=== PATIENT | male | born 2000 | race Caucasian/White ===

== ENCOUNTER → 2021-06-18 15:37 | Outpatient (REF) | payer OTHER, SELFPAY ==
--- NOTE | 2021-06-18 | ECG_ITS ---
Test Reason : nursing home medication Blood Pressure : / mmHG Vent. Rate : 060 BPM Atrial Rate : 060 BPM P-R Int : 112 ms QRS Dur : 088 ms QT Int : 392 ms P-R-T Axes : 057 081 062 degrees QTc Int : 392 ms Normal sinus rhythm with sinus arrhythmia Normal ECG No previous ECGs available Referred By: Moises Garica Electronically Signed By:SAVANNAH NGUYEN
== END ==
LOC: HO.CARD 15:37
PROVIDERS: Visit Provider Psychiatry & Neurology Psychiatry
DX: Z79.899 Other long term (current) drug therapy (principal)
CPT/HCPCS: 93005